=== PATIENT | male | born 1945 | race Caucasian/White ===

== ENCOUNTER 2023-08-27 14:56 | Outpatient (REF) | payer MEDICARE, BC, SELFPAY ==
[2023-08-27 16:23] LABS: Free T4 1.59 ng/dL (0.76-1.46)
[2023-08-27 16:25] LABS: Alanine Aminotransferase 49 U/L (16-63); Albumin Level 2.9 g/dL (3.4-5.0); Alkaline Phosphatase 96 U/L (46-116); Anion Gap 11.9; Aspartate Amino Transferase 30 U/L (15-37); BUN Creatinine Ratio 20.1; Bilirubin Total 0.5 mg/dL (0.2-1.0); Calcium 7.7 mg/dL (8.5-10.1); Carbon Dioxide 25.7 mmol/L (21.0-32.0); Chloride 111 mmol/L (98-107); Chol HDL Ratio 2.5; Cholesterol 84 mg/dL (<=200); Estimated GFR (African America 48 (>=60); Estimated GFR (Non-African Ame 40 (>=60); Globulin 2.9 g/dL; Glucose 86 mg/dL (74-106); HDL Cholesterol 34 mg/dL (40-60); Magnesium 2.1 mg/dL (1.8-2.4); Potassium 4.6 mmol/L (3.5-5.1); Sodium 144 mmol/L (136-145); Thyroid Stimulating Hormone 4.067 uIU/mL (0.358-3.740); Total Protein 5.8 g/dL (6.4-8.2); Triglycerides 18 mg/dL (<=150); VLDL CHOLESTEROL 3.6 mg/dL
[2023-08-27 16:42] LABS: Hematocrit 31.7 % (42.0-54.0); Hemoglobin 10.1 g/dL (14.0-18.0); Mean Corpuscular HGB Conc 31.9 g/dL (29.9-35.2); Mean Corpuscular Hemoglobin 33.9 pg (25.9-34.0); Mean Corpuscular Volume 106.4 fL (80.0-94.0); Mean Platelet Volume 13.4 fL (9.5-13.5); Platelet Count 34 10^3/uL (150-450); Red Blood Count 2.98 10^6/uL (4.70-6.10); Red Cell Distribution Width 15.2 % (11.0-15.0); White Blood Count 3.4 10^3/uL (4.0-11.0)
[2023-08-27 18:55] LABS: Giant Platelets 1+
[2023-08-27 18:56] LABS: Macrocytosis 1+
[2023-08-27 19:00] LABS: Basophils Abs Manual 0.06 10^3/uL (0.00-0.10); Eosinophils Absolute Manual 0.06 10^3/uL (0.00-0.70); Lymphocytes Absolute Manual 1.42 10^3/uL (1.20-3.80); Monocytes Absolute Manual 0.61 10^3/uL (0.30-0.80); Segmented Neut Absolute Manual 1.22 10^3/uL (1.4-6.5)
== END 2023-08-27 14:57 | disposition home or self-care (01) ==
LOC: LAB 14:56
PROVIDERS: PCP Family Medicine; Visit Provider Family Medicine
DX: I48.91 Unspecified atrial fibrillation (principal)
CPT/HCPCS: 36415; 80053; 80061; 83735; 84439; 84443; 85007; 85027